=== PATIENT | male | born 1970 | race Caucasian/White ===

== ENCOUNTER 2016-08-27 16:57 | Emergency (ER) | payer MEDICAID ==
[~2016-08-27] VITALS: Ht 175.3 cm; Wt 85.5 kg
[2016-08-27 17:01] VITALS: BP 129/88
[2016-08-27] MEDS ORDERED: SODIUM CHLORIDE 0.9% 1,000ML IV ONE (17:30)
[2016-08-27] MEDS ORDERED: SODIUM CHLORIDE FLUSH 10ML SYR IVF ONE (17:30)
[2016-08-27 17:50] LABS: HEMOGLOBIN 13.2 g/dL (13.7-18.0)
[2016-08-27 17:59] LABS: BLOOD UREA NITROGEN 10 mg/dL (7-18)
[2016-08-27 18:00] LABS: ASPARTATE AMINO TRANSFERASE 8 U/L (15-37)
[2016-08-27] MEDS ORDERED: GADOBUTROL 7.5 MMOL/7.5 ML PFS ONE (19:12)
== END 2016-08-27 21:29 | disposition left against medical advice (07) ==
LOC: ED 21:23
DX: R07.0 Pain in throat (principal)
CPT/HCPCS: 36415; 72158; 80053; 83605; 84145; 85025; 85651; 86140; 87040; 99284; A9585

== ENCOUNTER → 2016-08-27 | Outpatient (CLI) | payer MEDICAID ==
[~2016-08-27] MED LIST: ACET325T14 PO; CYCL-259 PO; IBUP800T PO; NAPR500T PO; OXYC-229 PO
== END | disposition home or self-care (01) ==
LOC: RAD 16:27
PROVIDERS: ATTEND Neurological Surgery
DX: M25.78 Osteophyte, vertebrae (principal); Z98.890 Other specified postprocedural states
CPT/HCPCS: 72100

== ENCOUNTER → 2016-10-08 | Outpatient (CLI) | payer MEDICAID | END | disposition home or self-care (01) | LOC: RAD 14:33 | PROVIDERS: ATTEND Neurological Surgery | DX: M43.16 Spondylolisthesis, lumbar region (principal); M54.16 Radiculopathy, lumbar region; Z98.890 Other specified postprocedural states; Z98.1 Arthrodesis status | CPT/HCPCS: 72110 ==

== ENCOUNTER → 2017-06-29 | Outpatient (CLI) | payer MEDICAID, OTHER ==
[~2017-06-29] MED LIST changes: +IBUP-1223 PO; -IBUP800T PO; +NAPR-856 PO; -NAPR500T PO; -OXYC-229 PO; +OXYC-307 PO
== END | disposition home or self-care (01) ==
LOC: CFH 15:13
PROVIDERS: ATTEND Nurse Practitioner
DX: M51.36 Other intervertebral disc degeneration, lumbar region (principal); M48.02 Spinal stenosis, cervical region; M50.30 Other cervical disc degeneration, unspecified cervical region
CPT/HCPCS: 72050; 72110

== ENCOUNTER → 2017-07-11 | Outpatient (CLI) | payer MEDICAID | END | disposition home or self-care (01) | LOC: RAD 12:31 | PROVIDERS: ATTEND Nurse Practitioner | DX: M50.323 Other cervical disc degeneration at C6-C7 level (principal); M51.16 Intervertebral disc disorders with radiculopathy, lumbar region; M48.02 Spinal stenosis, cervical region; Z98.890 Other specified postprocedural states | CPT/HCPCS: 72141; 72148 ==